=== PATIENT | female | born 2000 | race American Indian/Alaskan Native ===

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

== ENCOUNTER 2021-11-09 15:12 | Emergency (ER) | payer MEDICAID ==
[2021-11-09] MEDS ORDERED: AZITHROMYCIN 250 MG TAB PO ONE (17:13)
[2021-11-09] MEDS ORDERED: dexAMETHasone 20 MG/5 ML VIAL IM ONE (17:13)
[2021-11-09] MEDS ORDERED: IBUPROFEN 800 MG TAB PO ONE (17:13)
--- NOTE | 2021-11-09 17:14 | Emergency Department Report ---
ED General Adult HPI - General Chief complaint: Upper Respiratory Infection Stated complaint: CHEST PAIN/THROAT MUSCLE Time Seen by Provider: 11/09/21 15:52 Source: patient Mode of arrival: Ambulatory Limitations: No Limitations - History of Present Illness Initial comments: Is a 21-year-old female who presents for cough congestion chest wall pain with c oughing x3 days. Patient states that she went to a concert with her and both have similar symptoms 3 days after. Cough is productive clear. There is no fevers there is no chills. There is no nausea no vomiting. There is sinus and head congestion. Clear postnasal drip. Symptoms are exacerbated by activity. Symptoms are relieved by nothing tried. Patient denies shortness of breath there is no lightheadedness or dizziness however there is right lateral chest wall pain with deep cough. He denies history of asthma or bronchitis. Patient is non-smoker. Patient presents with and child with similar symptoms. Severity scale (0 -10): 0 - Related Data Previous Rx's Medication Instructions Recorded Last Taken Type Albuterol Mdi (or & Nicu Only) 2 puff IH QID PRN #8.5 gram 11/09/21 Unknown Rx [ProAir HFA Inhaler] dexAMETHasone [Decadron] 4 mg PO BID 5 Days #10 tab 11/09/21 Unknown Rx Allergies Allergy/AdvReac Type Severity Reaction Status Date / Time No Known Allergies Allergy Unverified 10/02/19 13:14 ED Review of Systems ROS: Stated complaint: CHEST PAIN/THROAT MUSCLE Other details as noted in HPI Constitutional: malaise Eyes: denies: eye pain, eye discharge, vision change ENT: throat pain, congestion. denies: ear pain Respiratory: cough. denies: shortness of breath, wheezing Cardiovascular: chest pain Endocrine: no symptoms reported Gastrointestinal: denies: abdominal pain, nausea, vomiting, diarrhea Genitourinary: denies: urgency, dysuria, discharge Musculoskeletal: denies: back pain, joint swelling, arthralgia Skin: as per HPI Neurological: denies: headache, weakness, numbness, paresthesias, confusion, vertigo Psychiatric: denies: anxiety, depression Hematological/Lymphatic: denies: easy bleeding, easy bruising ED Past Medical Hx - Past Medical History Previous Medical History?: Yes Additional medical history: Vaginal delivery - Surgical History Past Surgical History?: No - Social History Smoking Status: Never Smoker Substance Use Type: None - Medications Home Medications: Home Medications Medication Instructions Recorded Confirmed Last Taken Type Albuterol Mdi (or & Nicu Only) 2 puff IH QID PRN #8.5 gram 11/09/21 Unknown Rx [ProAir HFA Inhaler] dexAMETHasone [Decadron] 4 mg PO BID 5 Days #10 tab 11/09/21 Unknown Rx ED Physical Exam - General Limitations: No Limitations General appearance: alert, in no apparent distress - Head Head exam: Present: normocephalic, normal inspection - Eye Eye exam: Present: normal appearance, PERRL, EOMI. Absent: conjunctival injection, nystagmus Pupils: Present: normal accommodation - ENT ENT exam: Present: normal orophraynx, mucous membranes moist - Neck Neck exam: Present: normal inspection, full ROM. Absent: tenderness, meningismus, lymphadenopathy - Respiratory Respiratory exam: Present: normal lung sounds bilaterally, chest wall tenderness. Absent: respiratory distress, wheezes, rales, rhonchi, stridor - Cardiovascular Cardiovascular Exam: Present: regular rate, normal rhythm, normal heart sounds. Absent: systolic murmur, diastolic murmur, rubs, gallop - GI/Abdominal GI/Abdominal exam: Present: soft, normal bowel sounds. Absent: distended, tenderness, guarding, rebound, rigid, bruit, hernia - Rectal Rectal exam: Present: deferred - Extremities Exam Extremities exam: Present: normal inspection, full ROM, normal capillary refill - Back Exam Back exam: Present: normal inspection, full ROM. Absent: CVA tenderness (R), CVA tenderness (L) - Neurological Exam Neurological exam: Present: alert, oriented X3, CN II-XII intact, normal gait, reflexes normal. Absent: motor sensory deficit - Psychiatric Psychiatric exam: Present: normal affect, normal mood - Skin Skin exam: Present: warm, dry, intact, normal color. Absent: rash ED Course Vital Signs 11/09/21 11/09/21 15:23 15:45 Temperature 99.7 F H 98.0 F Pulse Rate 125 H 72 Respiratory 18 16 Rate Blood Pressure 108/72 Blood Pressure 109/68 [Right] O2 Sat by Pulse 97 99 Oximetry ED Medical Decision Making - Radiology Data Radiology results: report reviewed, image reviewed Critical care attestation.: If time is entered above; I have spent that time in minutes in the direct care of this critically ill patient, excluding procedure time. ED Disposition Clinical Impression: Viral illness URI (upper respiratory infection) Qualifiers: URI type: unspecified URI Qualified Code(s): J06.9 - Acute upper respiratory infection, unspecified Disposition: 01 HOME / SELF CARE / HOMELESS Is pt being admited?: No Does the pt Need Aspirin: No Condition: Stable Instructions: Viral Illness, Adult, Prevent the Spread of COVID-19 if You Are Sick - [facility] Additional Instructions: Take medications as prescribed, hydrate as directed. Follow-up with your doctor in 2 to 3 days. Return to emergency department should symptoms worsen. Prescriptions: dexAMETHasone [Decadron] 4 mg PO BID 5 Days #10 tab Albuterol Mdi (or & Nicu Only) [ProAir HFA Inhaler] 2 puff IH QID PRN #8.5 gram PRN Reason: Shortness Of Breath Referrals: THOMAS JIANG MD [Staff Physician] - 3-5 Days Forms: Work/School Release Form(ED) Time of Disposition: 17:58
--- NOTE | 2021-11-09 17:19 | XRay Report ---
XR chest routine 2V INDICATION / CLINICAL INFORMATION: cough fever COMPARISON: None available. FINDINGS: SUPPORT DEVICES: None. HEART / MEDIASTINUM: No significant abnormality. LUNGS / PLEURA: Lungs are clear. Costophrenic sulci are sharp. No pneumothorax. ADDITIONAL FINDINGS: No significant additional findings. IMPRESSION: 1. No acute findings. Signer Name: Jake Snider MD Signed: 11/09/2021 5:14 PM Workstation Name: [id number]
[2021-11-09 18:33] VITALS: BP 119/75
== END 2021-11-09 18:32 | disposition home or self-care (01) ==
LOC: ED 15:12
DX: B34.9 Viral infection, unspecified (principal); J06.9 Acute upper respiratory infection, unspecified
CPT/HCPCS: 71046; 96372; 99283; J1100